=== PATIENT | male | born 1995 | race Caucasian/White ===

== ENCOUNTER 2017-02-23 16:53 | Emergency (ER) | payer BC ==
[~2017-02-23] VITALS: Ht 188 cm; Wt 97.5 kg
[2017-02-23 16:56] VITALS: Ht 188 cm; Wt 97.5 kg
[2017-02-23] MEDS ORDERED: THROLOZ22 MT (17:09)
[2017-02-23] MEDS ORDERED: DEXT30TA7 PO (17:09)
[2017-02-23] MEDS ORDERED: IBUP-103 PO (17:09)
[2017-02-23] MEDS ORDERED: DEXT5LIQ23 PO (17:09)
--- NOTE | 2017-02-23 17:16 | EMERGENCY ROOM VISIT NOTE ---
History Report prepared by Marcello: Berkley Hodgson Under the Supervision of: Dr. Seema Bradley, D.O. First contact with patient: 17:02 Chief Complaint: FLU LIKE SX Stated Complaint: SORE THROAT, COUGH, FLU, SORE/ACHEY BODY, FAINT History of Present Illness The patient is a 21 year old male who presents to the Emergency Room with complaints of worsening flu like symptoms beginning 2 weeks ago. The patient states that he has had a productive cough with yellow mucous and a sore throat. He states he has been taking Delsym, Advil, and Mucinex PM for his symptoms to no relief. He states that he felt as if he was going to pass out when he got back to school today and that he feels generalized weakness and achiness. He also states that he had the chills today and has had a loss of appetite. He states that his roommates have been sick. The patient reports that he has not had his flu shot this year, but has had it in the past. He denies any other medical problems. Pt denies headache, change in vision, fevers, chest pain, vomiting, diarrhea, pain with urination, and melena. No recent travel. No hx of being immunocompromised. Source of History: patient Onset: 2 weeks ago Position: other (global) Timing: worsening Associated Symptoms: + chills, + sorethroat, + cough (productive with yellow mucous ), + weakness (and achiness ), No fevers, No chest pain, No vomiting, No melena, No urinary symptoms Review of Systems See HPI for pertinent positives & negatives. A total of 10 systems reviewed and were otherwise negative. Past Medical & Surgical Medical Problems: (1) No active medical problems Family History No pertinent family history stated. Social History Smoking Status: Never Smoker Housing Status: lives with roommate Occupation Status: [employer] student Current/Historical Medications Scheduled PRN Dextromethorphan Polistirex (Delsym), 20 ML PO UD PRN for illness Dextromethorphan-Guaifenesin (Mucinex Dm), 1 TAB PO Q12 PRN for illness Ibuprofen Tab (Advil), 400 MG PO UD PRN for Pain or Fever Menthol (Mouth-Throat) (Melfa Cough Drops), 1 CHARLENE MT for illness Allergies Coded Allergies: NO KNOWN DRUG ALLERGIES (Verified Allergy, Unknown, none, 02/23/17) Physical Exam Vital Signs Date Time Temp Pulse Resp B/P (MAP) Pulse Ox O2 Delivery O2 Flow Rate FiO2 02/23/17 19:59 36.7 02/23/17 19:06 38.5 104 18 131/73 98 Room Air 02/23/17 16:56 37.6 120 20 148/93 97 Room Air Physical Exam GENERAL: alert, well appearing, well nourished, no distress, non-toxic EYE EXAM: normal conjunctiva, PERRL and EOM's grossly intact OROPHARYNX: no exudate, mild erythema, lips, buccal mucosa, and tongue normal and mucous membranes are moist NECK: supple, no nuchal rigidity, no adenopathy, non-tender LUNGS: Clear to auscultation. Normal chest wall mechanics HEART: no murmurs, S1 normal and S2 normal ABDOMEN: abdomen soft, non-tender, normo-active bowel sounds, no masses, no rebound or guarding. BACK: Back is symmetrical on inspection and there is no deformity, no midline tenderness, no CVA tenderness. SKIN: no rashes and no bruising UPPER EXTREMITIES: upper extremities are grossly normal. LOWER EXTREMITIES: No pitting edema. NEURO EXAM: Normal sensorium, cranial nerves II-XII grossly intact, normal speech, no gross weakness of arms, no gross weakness of legs. No drift. Finger to nose intact. Gross sensation intact. Medical Decision & Procedures ER Provider Diagnostic Interpretation: Radiology results have been interpreted by the radiologist and reviewed by me. CHEST 2 VIEWS ROUTINE CLINICAL HISTORY: cough dyspnea COMPARISON STUDY: No previous studies for comparison. FINDINGS: The bones soft tissues and hemidiaphragms are normal. The cardiomediastinal silhouette is normal. The lungs are clear. The pulmonary vasculature is normal. IMPRESSION: Negative chest. The above report was generated using voice recognition software. It may contain grammatical, syntax or spelling errors. Electronically signed by: Kit Rivera M.D. 02/23/2017 6:11 PM Dictated Date/Time: 02/23/2017 6:11 PM Laboratory Results 02/23/17 17:37 Red Blood Count 5.15, Mean Corpuscular Volume 84.7, Mean Corpuscular Hemoglobin 28.9, Mean Corpuscular Hemoglobin Concent 34.2, Mean Platelet Volume 9.8, Neutrophils (%) (Auto) 82.7, Lymphocytes (%) (Auto) 7.8, Monocytes (%) (Auto) 7.9, Eosinophils (%) (Auto) 1.2, Basophils (%) (Auto) 0.2, Neutrophils # (Auto) 8.63, Lymphocytes # (Auto) 0.82, Monocytes # (Auto) 0.83, Eosinophils # (Auto) 0.13, Basophils # (Auto) 0.02 02/23/17 17:37 Test 02/23/17 17:37 White Blood Count 10.45 K/uL (4.8-10.8) Red Blood Count 5.15 M/uL (4.7-6.1) Hemoglobin 14.9 g/dL (14.0-18.0) Hematocrit 43.6 % (42-52) Mean Corpuscular Volume 84.7 fL (80-100) Mean Corpuscular Hemoglobin 28.9 pg (25-34) Mean Corpuscular Hemoglobin Concent 34.2 g/dl (32-36) Platelet Count 190 K/uL (130-400) Mean Platelet Volume 9.8 fL (7.4-10.4) Neutrophils (%) (Auto) 82.7 % Lymphocytes (%) (Auto) 7.8 % Monocytes (%) (Auto) 7.9 % Eosinophils (%) (Auto) 1.2 % Basophils (%) (Auto) 0.2 % Neutrophils # (Auto) 8.63 K/uL (1.4-6.5) Lymphocytes # (Auto) 0.82 K/uL (1.2-3.4) Monocytes # (Auto) 0.83 K/uL (0.11-0.59) Eosinophils # (Auto) 0.13 K/uL (0-0.5) Basophils # (Auto) 0.02 K/uL (0-0.2) RDW Standard Deviation 40.5 fL (36.4-46.3) RDW Coefficient of Variation 13.3 % (11.5-14.5) Immature Granulocyte % (Auto) 0.2 % Immature Granulocyte # (Auto) 0.02 K/uL (0.00-0.02) Anion Gap 5.0 mmol/L (3-11) Est Creatinine Clear Calc Drug Dose 137.1 ml/min Estimated GFR () 125.0 Estimated GFR (Non- 107.9 BUN/Creatinine Ratio 15.7 (10-20) Calcium Level 8.4 mg/dl (8.5-10.1) Monoscreen NEG (NEG) Date/Time Source Procedure Growth Status 02/23/17 17:31 Throat Group A Streptococcus Screen - Final SPECIMEN NEGATIVE FOR GROUP A BETA ST... Complete 02/23/17 17:31 Throat Group A Streptococcus Screen (MARIA T) - Final NO BETA STREP. ISOLATED. Complete Laboratory results per my review. Medications Administered Medications (Trade) Dose Ordered Sig/Selma Route Start Time Stop Time Status Last Admin Dose Admin Sodium Chloride 1,000 ml @ 999 mls/hr Q1H1M STAT IV 02/23/17 17:22 02/23/17 18:22 DC 02/23/17 17:22 999 MLS/HR Acetaminophen (Tylenol Tab) 1,000 mg NOW STAT PO 02/23/17 17:22 02/23/17 17:24 DC 02/23/17 17:50 1,000 MG Ketorolac Tromethamine (Toradol Inj) 30 mg NOW STAT IV 02/23/17 18:41 02/23/17 18:42 DC 02/23/17 19:02 30 MG Benzonatate (Tessalon Perles Cap) 100 mg NOW ONCE PO 02/23/17 18:45 02/23/17 18:46 DC 02/23/17 19:03 100 MG ECG Indication: SOB/dyspnea Rate (beats per minute): 109 Rhythm: sinus tachycardia Findings: no acute ischemic change, no ectopy, other (normal axis, normal intervals ) ED Course 1707: The patient was evaluated in room B10. A complete history and physical exam was performed. 1721: Ordered Tylenol Tab 1,000 mg PO, Sodium Chloride 1,000 ml @ 999 mls/hr IV. 0: I updated the patient on his results. He states that he is still not feeling well. 1840: Ordered Toradol Inj 30 mg IV. 1844: Ordered Benzonatate 100 mg PO. 0: Upon reevaluation, the patient is feeling better. I discussed the findings and the treatment plan with the patient. He verbalizes agreement and understanding. He was discharged home. Medical Decision Differentials include: viral syndrome, URI, bronchitis, pneumonia, strep, mono, influenza, and dehydration. Pt well appearing here despite illness. VS stable. Labs and cxr reassuring. Pt felt improved with IVF, tylenol, toradol. Discussed continued supportive care, sx to watch/return for, f/u with PCP. Doubt bacteremia/sepsis, meningitis /encephalitis, deep space infection, pneumonia, effusion, pericarditis/ myocarditis. Pt verbalized understanding of all of this and was agreeable with plan. Medication Reconcilliation Current Medication List: was personally reviewed by me Blood Pressure Screening Patient's blood pressure: Elevated blood pressure Blood pressure disposition: Elevated BP felt to be situational Impression Primary Impression: Influenza-like symptoms Additional Impression: Upper respiratory infection Scribe Attestation The scribe's documentation has been prepared under my direction and personally reviewed by me in its entirety. I confirm that the note above accurately reflects all work, treatment, procedures, and medical decision making performed by me. Departure Information Dispostion Home / Self-Care Referrals No Doctor, Assigned (PCP) Forms HOME CARE DOCUMENTATION FORM, IMPORTANT VISIT INFORMATION Patient Instructions My [facility] Additional Instructions Please continue to drink clear liquids at frequent intervals to stay well- hydrated. You may use Tylenol and ibuprofen as needed for pain and fevers. You may eat as tolerated. If you have any worsening cough, trouble breathing, fevers that do not respond to medicine, or coughing up blood, develop chest pain , vomiting, diarrhea, or you've any other new concerns, please return the emergency room. Problem Qualifiers Additional Impression: Upper respiratory infection URI type: unspecified URI Qualified Codes: J06.9 - Acute upper respiratory infection, unspecified
[2017-02-23] MEDS ORDERED: ACETAMINOPHEN 500 MG TAB PO STA (17:22)
[2017-02-23] MEDS ORDERED: SODIUM CHLORIDE 0.9% 1000ML 1,000 ML IV STA (17:22)
[2017-02-23 17:53] LABS: BASO % 0.2 %; BASO ABS # 0.02 K/uL (0-0.2); COMPLETE YES; EOS % 1.2 %; HEMATOCRIT 43.6 % (42-52); IG% 0.2 %; LYMPH % 7.8 %; LYMPH ABS # 0.82 K/uL (1.2-3.4); MEAN CELL VOLUME 84.7 fL (80-100); MEAN CORPUSCULAR HEMOGLOBIN 28.9 pg (25-34); MEAN CORPUSCULAR HGB CONC 34.2 g/dl (32-36); MEAN PLATELET VOLUME 9.8 fL (7.4-10.4); MONO % 7.9 %; NEUT % 82.7 %; PLATELET COUNT 190 K/uL (130-400); RED BLOOD COUNT 5.15 M/uL (4.7-6.1); WHITE BLOOD COUNT 10.45 K/uL (4.8-10.8)
[2017-02-23 18:05] LABS: BUN/CREATININE RATIO 15.7 (10-20); CALCIUM 8.4 mg/dl (8.5-10.1); POTASSIUM 3.8 mmol/L (3.5-5.1)
--- NOTE | 2017-02-23 18:12 | DIAGNOSTIC IMAGING REPORT ---
CHEST 2 VIEWS ROUTINE CLINICAL HISTORY: cough dyspnea COMPARISON STUDY: No previous studies for comparison. FINDINGS: The bones soft tissues and hemidiaphragms are normal. The cardiomediastinal silhouette is normal. The lungs are clear. The pulmonary vasculature is normal. IMPRESSION: Negative chest. The above report was generated using voice recognition software. It may contain grammatical, syntax or spelling errors. Electronically signed by: Kit Rivera M.D. 02/23/2017 6:11 PM Dictated Date/Time: 02/23/2017 6:11 PM
[2017-02-23] MEDS ORDERED: KETOROLAC TROMETHAMINE 30 MG/ML VIAL IV STA (18:41)
[2017-02-23] MEDS ORDERED: BENZONATATE 100MG CAP PO ONE (18:45)
[2017-02-23 19:06] VITALS: BP 131/73; PULSE 104; O2SAT 98
[2017-02-23 19:59] VITALS: TEMP 36.7
== END 2017-02-23 19:59 | disposition home or self-care (01) ==
LOC: C.EDB 16:55
DX: J06.9 Acute upper respiratory infection, unspecified (principal)